=== PATIENT | female | born 1950 | race Caucasian/White ===

== ENCOUNTER 2016-09-12 16:06 | Emergency (ER) | payer MEDICARE, OTHER ==
[~2016-09-12] VITALS: Ht 157.5 cm; Wt 92.3 kg
[~2016-09-12 16:06] MED LIST: ASPIRIN 32325 MG/TAB PO; ATIVAN 1MG T1 MG/TAB PO; DETROL LA4 PO; GRALISE300 MG PO; LEVAQUIN 750MG750 M1 PO; LEVSIN0.125 M1 PO; LOTREL 10 MG-201 CAP PO; NEURONTIN300 MG/CAP PO; NEXIUM 20MG20 MG PO; NEXIUM 40MG40 MG PO; NORCO 325 MG-51 TAB PO; NORCO 325 MG-7.1 TAB PO; PERCOCET 325 MG1 TA2 PO; PREDNISONE10 MG PO; PROAIR HFA0.09 MG/AC IH; PROZAC 20MG20 MG PO; ROBAXIN 50500 MG/TAB PO; RT ADVAIR 128 DISKUS IH; STOOL SOFTENER100 M2 PO; ZETIA 10MG TAB10 MG PO; ZYRTEC 10MG10 MG PO
[2016-09-12 16:08] VITALS: TEMP 98.4
[2016-09-12] MEDS ORDERED: ASPIRIN 81M81 MG/TA2 PO (16:16)
[2016-09-12 18:36] VITALS: BP 97/71; PULSE 71
== END 2016-09-12 18:38 | disposition home or self-care (01) ==
LOC: COL.ER 16:06
DX: S76.011A Strain of muscle, fascia and tendon of right hip, initial encounter (principal); S70.01XA Contusion of right hip, initial encounter; W01.10XA Fall on same level from slipping, tripping and stumbling with subsequent striking against unspecified object, initial encounter; Y92.002 Bathroom of unspecified non-institutional (private) residence as the place of occurrence of the external cause; I10 Essential (primary) hypertension; Z96.643 Presence of artificial hip joint, bilateral
CPT/HCPCS: J1170

== ENCOUNTER 2017-04-07 16:58 | Emergency (ER) | payer MEDICARE, OTHER ==
[~2017-04-07] VITALS: Ht 157.5 cm; Wt 92.7 kg
[~2017-04-07 16:58] MED LIST changes: +ASPIRIN 81M81 MG/TA2 PO
[2017-04-07 16:59] VITALS: TEMP 98
[2017-04-07 18:19] VITALS: BP 107/72; PULSE 65
== END 2017-04-07 18:19 | disposition home or self-care (01) ==
LOC: COL.ER 16:58
DX: S76.011A Strain of muscle, fascia and tendon of right hip, initial encounter (principal); I10 Essential (primary) hypertension; J44.9 Chronic obstructive pulmonary disease, unspecified; G43.909 Migraine, unspecified, not intractable, without status migrainosus; Z79.82 Long term (current) use of aspirin; Z96.641 Presence of right artificial hip joint; Z98.890 Other specified postprocedural states; X50.0XXA Overexertion from strenuous movement or load, initial encounter; Y92.59 Other trade areas as the place of occurrence of the external cause
CPT/HCPCS: J1885

== ENCOUNTER → 2017-08-18 | Outpatient (CLI) | payer MEDICARE, OTHER | LOC: COL.RAD 12:03 | DX: M25.551 Pain in right hip (principal); Z96.641 Presence of right artificial hip joint | CPT/HCPCS: J3301; Q9967 ==

== ENCOUNTER → 2017-12-19 | Outpatient (CLI) | payer MEDICARE, OTHER ==
[2017-12-19 12:03] LABS: HEMATOCRIT 37.7 % (37.0-47.0); HEMOGLOBIN 12.4 g/dl (12.5-16.0); MEAN CELL VOLUME 86 fl (80.0-100.0); MEAN CORPUSCULAR HEMOGLOBIN 28 pg (27.0-31.0); MEAN CORPUSCULAR HGB CONC 33 g/dl (33.0-37.0); MEAN PLATELET VOLUME 9.2 fl (7.4-10.4); PLATELET COUNT 353 K/mm3 (130-400); RED BLOOD COUNT 4.39 M/mm3 (4.10-5.30); REDCELL DISTRIBUTION WIDTH-CV 15.8 % (11.5-14.5)
[2017-12-19 12:29] LABS: ERYTHROCYTE SEDIMENTATION RATE 13 mm/hr (0-30)
[2017-12-22 16:56] LABS: CHROMIUM-SERUM XXX; COBALT SERUM XXX
== END ==
LOC: COL.LAB 11:31
PROVIDERS: Orthopaedic Surgery
DX: M25.551 Pain in right hip (principal); M25.552 Pain in left hip

== ENCOUNTER → 2017-12-19 | Outpatient (CLI) | payer MEDICARE, OTHER | LOC: COL.RAD 11:57 | DX: M25.571 Pain in right ankle and joints of right foot (principal) | CPT/HCPCS: J3301; Q9967 ==

== ENCOUNTER → 2017-12-23 | Outpatient (CLI) | payer MEDICARE, OTHER | LOC: COL.LAB 14:00 | DX: M25.551 Pain in right hip (principal); M25.552 Pain in left hip ==

== ENCOUNTER → 2017-12-26 | Outpatient (CLI) | payer MEDICARE, OTHER | LOC: COL.RAD 09:43 | DX: M25.551 Pain in right hip (principal) | CPT/HCPCS: J3301; Q9967 ==

== ENCOUNTER → 2018-02-23 | Outpatient (CLI) | payer MEDICARE, OTHER | LOC: COL.RAD 13:20 | DX: M25.551 Pain in right hip (principal) | CPT/HCPCS: J3301; Q9967 ==

== ENCOUNTER 2018-06-17 13:05 | Emergency (ER) | payer MEDICARE, OTHER ==
[~2018-06-17] VITALS: Ht 157.5 cm; Wt 93.2 kg
[2018-06-17 13:08] VITALS: BP 140/80; TEMP 98
[2018-06-17 14:27] VITALS: PULSE 74
== END 2018-06-17 14:27 | disposition home or self-care (01) ==
LOC: COL.ER 13:05
DX: S81.812A Laceration without foreign body, left lower leg, initial encounter (principal); G43.909 Migraine, unspecified, not intractable, without status migrainosus; F43.10 Post-traumatic stress disorder, unspecified; Z23 Encounter for immunization; Z87.891 Personal history of nicotine dependence; Z79.899 Other long term (current) drug therapy; Z79.82 Long term (current) use of aspirin; W45.8XXA Other foreign body or object entering through skin, initial encounter; Y92.009 Unspecified place in unspecified non-institutional (private) residence as the place of occurrence of the external cause

== ENCOUNTER 2018-06-26 14:43 | Emergency (ER) | payer MEDICARE, OTHER ==
[2018-06-26 14:54] VITALS: BP 129/72; PULSE 76; TEMP 98.3
== END 2018-06-26 15:06 | disposition home or self-care (01) ==
LOC: COL.ER 14:43
DX: S81.812D Laceration without foreign body, left lower leg, subsequent encounter (principal); X58.XXXD Exposure to other specified factors, subsequent encounter

== ENCOUNTER 2019-08-01 16:42 | Emergency (ER) | payer MEDICARE, OTHER ==
[~2019-08-01] VITALS: Ht 157.5 cm; Wt 86.4 kg
[2019-08-01 16:49] VITALS: BP 138/89; TEMP 98.6
[2019-08-01] MEDS ORDERED: NORCO 325 MG-7.1 TAB PO (17:22)
[2019-08-01 17:34] VITALS: PULSE 90
== END 2019-08-01 17:29 | disposition home or self-care (01) ==
LOC: COL.ER 16:42
DX: M25.561 Pain in right knee (principal); M25.562 Pain in left knee; M25.572 Pain in left ankle and joints of left foot; M25.571 Pain in right ankle and joints of right foot; G89.29 Other chronic pain; Z79.82 Long term (current) use of aspirin

== ENCOUNTER → 2021-09-03 | Outpatient (CLI) | payer MEDICARE, OTHER ==
[2021-09-03 10:47] LABS: BASO # 0.1 K/mm3 (0.0-0.2); BASO % 0.9 % (0.0-2.0); EOS # 0.1 K/mm3 (0.0-0.7); GRAN # 3.7 K/mm3 (1.4-6.5); GRAN % 53.3 % (42.2-75.2); HEMOGLOBIN 11.8 g/dl (12.5-16.0); LYMPH # 2.2 K/mm3 (1.2-3.4); LYMPH % 32.6 % (20.0-51.0); MEAN CELL VOLUME 93 fl (80.0-100.0); MEAN CORPUSCULAR HEMOGLOBIN 30 pg (27-31); MEAN CORPUSCULAR HGB CONC 32 g/dl (33.0-37.0); MEAN PLATELET VOLUME 9.7 fl (7.4-10.4); MONO # 0.8 K/mm3 (0.1-0.6); MONO % 10.9 % (1.7-9.3); PLATELET COUNT 336 K/mm3 (130-400); RED BLOOD COUNT 3.97 M/mm3 (4.10-5.30); REDCELL DISTRIBUTION WIDTH-CV 13.7 % (11.5-14.5)
[2021-09-03 10:48] LABS: HEMATOCRIT 36.8 % (37.0-47.0)
[2021-09-03 11:03] LABS: ALBUMIN 3.8 gm/dL (3.4-4.8); BILIRUBIN,TOTAL 0.3 mg/dL (0.2-1.2); CALCIUM 9.6 mg/dL (8.4-10.2); CREATININE, serum 1.15 mg/dL (0.57-1.11); TOTAL PROTEIN 7.1 gm/dL (6.2-8.1)
== END ==
LOC: COL.LAB 10:07
PROVIDERS: Internal Medicine Pulmonary Disease
DX: J44.9 Chronic obstructive pulmonary disease, unspecified (principal)

== ENCOUNTER 2021-09-10 10:08 | Day surgery (SDC) | payer MEDICARE, OTHER ==
[2021-09-10] VITALS (10 sets, daily range): BP systolic 99–152; BP diastolic 57–78; PULSE 68–80
[~2021-09-10] VITALS: Ht 157.5 cm; Wt 90.2 kg
--- NOTE | 2021-09-10 07:48 | NUR ---
Initial visit; Patient thanked [employer] for looking in on her after her surgical procedure. [employer] offered blessings and apologized for not praying with her prior to her Procedure due to another issue. Patient was fine and stated she prayed and everything came out well.
[2021-09-10 11:20] LABS: HEMOGLOBIN 11.6 g/dl (12.5-16.0); MEAN CELL VOLUME 91 fl (80.0-100.0); MEAN CORPUSCULAR HEMOGLOBIN 30 pg (27-31); MEAN CORPUSCULAR HGB CONC 33 g/dl (33.0-37.0); MEAN PLATELET VOLUME 9.8 fl (7.4-10.4); PLATELET COUNT 322 K/mm3 (130-400); REDCELL DISTRIBUTION WIDTH-CV 13.5 % (11.5-14.5)
[2021-09-10 11:21] LABS: HEMATOCRIT 35.5 % (37.0-47.0)
[2021-09-10 11:38] LABS: CALCIUM 9.4 mg/dL (8.4-10.2); CREATININE, serum 0.79 mg/dL (0.57-1.11); POTASSIUM 4.7 mmol/L (3.5-4.5)
--- NOTE | 2021-09-10 11:45 | NUR ---
SEE MERGE FOR ALL MEDICATION ADMINISTRATION TIMES/DOSAGES AND INTRA/POST PROCEDURE SEDATION ASSESSMENTS. PRE PROCEDURE ASSESSMENT COMPLETED IN [facility].
[2021-09-10 12:01] LABS: PROTHROMBIN TIME 11.3 SECONDS (9.7-12.8)
[2021-09-10 12:03] LABS: PARTIAL THROMBOPLASTIN TIME 34.4 SECONDS (26.0-37.0)
[2021-09-10] MEDS ORDERED: PROAIR HFA0.09 MG/AC IH (12:07)
[2021-09-10] MEDS ORDERED: LOTREL 10 MG-201 CAP PO (12:07)
[2021-09-10] MEDS ORDERED: PROZAC 20MG20 MG PO (12:08)
[2021-09-10] MEDS ORDERED: ASPIRIN E.C. 8181 MG PO (12:08)
[2021-09-10] MEDS ORDERED: FOLIC ACID 11 MG/TA1 PO (12:09)
[2021-09-10] MEDS ORDERED: RT ADVAIR 128 DISKUS IH (12:09)
[2021-09-10] MEDS ORDERED: NEURONTIN100 MG/CAP PO (12:10)
[2021-09-10] MEDS ORDERED: NORCO 325 MG-7.1 TAB PO (12:12)
[2021-09-10] MEDS ORDERED: LIALDA 1.2 GM1.2 GM PO (12:12)
[2021-09-10] MEDS ORDERED: ATIVAN 1MG T1 MG/TAB PO (12:12)
[2021-09-10] MEDS ORDERED: SINGULAIR 110 MG/TAB PO (12:13)
[2021-09-10] MEDS ORDERED: PRILOSEC 20MG20 MG PO (12:13)
[2021-09-10] MEDS ORDERED: DETROL LA4 PO (12:13)
[2021-09-10] MEDS ORDERED: NARCAN4 MG NS (12:14)
[2021-09-10] MEDS ORDERED: CRESTOR 10MG10 MG PO (13:15)
--- NOTE | 2021-09-10 13:20 | NUR ---
Dressing to rt venous puncture site clean, dry and intact. Site soft to palpation. Pt assisted to bedpan. at bedside. Call light in reach.
--- NOTE | 2021-09-10 16:20 | NUR ---
DC instructions reviewed with pt and , both express understanding. Air was removed from TR band in 2 ml increments with no bleeding or complication. Rt radial puncture site dressed with folded 2x2 and bandaid. Dressing over rt groin at venous puncture site remains clean, dry and intact and area has been soft to palpation with each check. INT DC'd with catheter intact. She is steady on feet in room. Pt assisted out to 's car by wheelchair.
== END 2021-09-10 16:20 | disposition home or self-care (01) ==
LOC: COL.CAR 10:08
PROVIDERS: Internal Medicine Cardiovascular Disease
DX: R07.9 Chest pain, unspecified (principal); R06.02 Shortness of breath; R06.00 Dyspnea, unspecified; I25.10 Atherosclerotic heart disease of native coronary artery without angina pectoris; J44.9 Chronic obstructive pulmonary disease, unspecified
CPT/HCPCS: C1894; J1644; J2250; J3010; Q9967

== ENCOUNTER → 2021-11-02 | Outpatient (CLI) | payer MEDICARE, OTHER ==
[~2021-11-02] MED LIST changes: +ASPIRIN E.C. 8181 MG PO; +CRESTOR 10MG10 MG PO; +FOLIC ACID 11 MG/TA1 PO; +LIALDA 1.2 GM1.2 GM PO; +NARCAN4 MG NS; +NEURONTIN100 MG/CAP PO; +PRILOSEC 20MG20 MG PO; +SINGULAIR 110 MG/TAB PO
== END ==
LOC: COL.PUL 12:39
DX: R06.02 Shortness of breath (principal)
CPT/HCPCS: J7674

== ENCOUNTER 2024-02-15 08:52 | Emergency (ER) | payer MEDICARE, OTHER ==
[~2024-02-15] VITALS: Ht 157.5 cm; Wt 85.9 kg
[~2024-02-15 08:52] MED LIST changes: +CEPHALEXIN500 M1 PO
[2024-02-15 11:17] VITALS: BP 99/70; PULSE 70; TEMP 98.1
== END 2024-02-15 11:17 | disposition home or self-care (01) ==
LOC: COL.ER 08:52
DX: S80.01XA Contusion of right knee, initial encounter (principal); Z87.891 Personal history of nicotine dependence; W17.89XA Other fall from one level to another, initial encounter